=== PATIENT | male | born 1985 | race Caucasian/White ===

== ENCOUNTER 2023-02-08 19:50 | Emergency (ER) | payer OTHER ==
[~2023-02-08] VITALS: Ht 188 cm; Wt 143.0 kg
[~2023-02-08 19:50] MED LIST: ACET-2267 PO; AMOX-355 PO; BENADRY; DEXT5SYR7 PO; DOXY100C2 PO; ERYT1OIN6 OP; HYDR-4226 PO; PRD20T PO; SULF1TAB38 PO; SULF1TAB7 PO
--- NOTE | 2023-02-08 20:20 | ED General ---
General Chief Complaint: Exposure Stated Complaint: NEEDLE STICK Nursing Triage Note: PT AMB TO RM 6 W C/O NEEDLE STICK, REPORTS HE WORKS AT [employer] [address]. PT STATES WHILE AT WORK HE FOUND AN INSULIN NEEDLE NEAR THE ROAD, WHEN HE WENT TO DISPOSE OF NEEDLE IT PRICKED LEFT SECOND FINGER. PT A&OX4. Source of Information: Patient Exam Limitations: No Limitations History of Present Illness Date Seen by Provider: Feb 08, 2023 Time Seen by Provider: 20:16 Initial Comments Patient is a 37-year-old male who presents the ED for needlestick. Patient works at [employer]. 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 Was wearing plastic gloves. He put the cap on the needle and the needle punctured his left index finger through the cap. He reports a small puncture without any bleeding. He is up-to-date on his tetanus. He states the needle was an insulin needle. Was recommended come the ED as urgent care was not open. Patient denies redness, swelling. Allergies and Home Medications Allergies Coded Allergies: NKANo Known Allergies (Unverified Allergy, Unknown, 01/31/08) No Known Drug Allergies (Verified , 01/31/08) Patient Home Medication List Home Medication List Reviewed: Yes Dolutegravir Sodium (Tivicay) 50 Mg Tablet, 50 MG PO DAILY Prescribed by: YARI JENKINS on 02/08/232121 Emtricitabine/Tenofov Alafenam (Descovy 200-25 mg Tablet) 200 Mg-25 Mg Tablet, 1 EACH PO DAILY Prescribed by: YARI JENKINS on 02/08/232121 Hydrocodone/Acetaminophen (Hydrocodone/Acetaminophen 5 MG/325 MG TAB) 1 Each Tablet, 1 EACH PO Q4H PRN for PAIN Prescribed by: BERNABE BREWSTER on 07/23/16 1110 Sulfamethoxazole/Trimethoprim (Bactrim Ds Tablet) 1 Each Tablet, 1 EACH PO BID Prescribed by: BERNABE BREWSTER on 07/23/16 1108 Review of Systems Review of Systems Constitutional: No chills, No diaphoresis, No malaise, No weakness EENTM: No ear pain, No blurred vision, No double vision Respiratory: No cough, No dyspnea on exertion Cardiovascular: No chest pain Gastrointestinal: No abdominal pain, No diarrhea, No dysphagia, No nausea, No vomiting Genitourinary: No decreased output, No discharge Musculoskeletal: No back pain, No joint pain, No joint swelling, No muscle pa in, No muscle stiffness Skin: No change in color Psychiatric/Neurological: Denies Anxiety, Denies Depressed All Other Systems Reviewed Negative Unless Noted: Yes Past Nariuam-Ikquye-Eyxuhj Hx Patient Social History Tobacco Use?: No Use of E-Cig and/or Vaping dev: No Substance use?: No Alcohol Use?: No Immunizations Up To Date Tetanus Booster (TDap): Unknown Past Medical History Asthma Reproductive Disorders: No Family Medical History COPD 19 MOTHER Diabetes mellitus 19 MOTHER Lung cancer 19 FATHER Cancer, Diabetes, Hypertension Physical Exam Vital Signs Vital Signs - First Documented 02/08/23 19:57 Temp 37.1 Pulse 78 Resp 18 B/P (MAP) 174/103 (126) Pulse Ox 96 O2 Delivery Room Air Capillary Refill : Less Than 3 Seconds Height, Weight, BMI Height: 6'2" Weight: 255lbs. 1.0oz. 115.088648vc; 40.00 BMI Method:Stated General Appearance: No Apparent Distress, WD/WN Eyes: Bilateral Eye Normal Inspection, Bilateral Eye PERRL, Bilateral Eye EOMI HEENT: PERRL/EOMI, TMs Normal, Normal ENT Inspection, Pharynx Normal Neck: Full Range of Motion, Normal Inspection, Non Tender, Supple Respiratory: Chest Non Tender, Lungs Clear, Normal Breath Sounds, No Accessory Muscle Use, No Respiratory Distress Cardiovascular: Regular Rate, Rhythm, No Edema, No Gallop, No JVD, No Murmur Gastrointestinal: Normal Bowel Sounds, No Organomegaly, No Pulsatile Mass, Non Tender Rectal: Normal Exam Back: Normal Inspection, No CVA Tenderness, No Vertebral Tenderness Extremity: Normal Capillary Refill, Normal Range of Motion Neurologic/Psychiatric: Alert, Oriented x3, No Motor/Sensory Deficits, Normal Mood/Affect Skin: Other (Very small pinpoint puncture left index finger.) Progress/Results/Core Measures Suspected Sepsis SIRS Temperature: Pulse: 78 Respiratory Rate: 18 Laboratory Tests 02/08/23 20:56: White Blood Count 7.4 Blood Pressure 174 /103 Mean: 126 Laboratory Tests 02/08/23 20:56: Creatinine 0.88, Platelet Count 248, Total Bilirubin 0.5 Results/Orders Lab Results Laboratory Tests Test 02/08/23 20:56 Range/Units White Blood Count 7.4 4.3-11.0 10^3/uL Red Blood Count 5.67 H 4.30-5.52 10^6/uL Hemoglobin 16.0 13.3-17.7 g/dL Hematocrit 46 40-54 % Mean Corpuscular Volume 81 80-99 fL Mean Corpuscular Hemoglobin 28 25-34 pg Mean Corpuscular Hemoglobin Concent 35 32-36 g/dL Red Cell Distribution Width 13.2 10.0-14.5 % Platelet Count 248 130-400 10^3/uL Mean Platelet Volume 8.9 L 9.0-12.2 fL Immature Granulocyte % (Auto) 0 % Neutrophils (%) (Auto) 54 42-75 % Lymphocytes (%) (Auto) 35 12-44 % Monocytes (%) (Auto) 9 0-12 % Eosinophils (%) (Auto) 2 0-10 % Basophils (%) (Auto) 0 0-10 % Neutrophils # (Auto) 4.0 1.8-7.8 10^3/uL Lymphocytes # (Auto) 2.5 1.0-4.0 10^3/uL Monocytes # (Auto) 0.6 0.0-1.0 10^3/uL Eosinophils # (Auto) 0.2 0.0-0.3 10^3/uL Basophils # (Auto) 0.0 0.0-0.1 10^3/uL Immature Granulocyte # (Auto) 0.0 0.0-0.1 10^3/uL Sodium Level 141 135-145 MMOL/L Potassium Level 3.9 3.6-5.0 MMOL/L Chloride Level 106 98-107 MMOL/L Carbon Dioxide Level 23 21-32 MMOL/L Anion Gap 12 5-14 MMOL/L Blood Urea Nitrogen 12 7-18 MG/DL Creatinine 0.88 0.60-1.30 MG/DL Estimat Glomerular Filtration Rate 114 BUN/Creatinine Ratio 14 Glucose Level 107 H 70-105 MG/DL Calcium Level 9.4 8.5-10.1 MG/DL Corrected Calcium 8.5-10.1 MG/DL Total Bilirubin 0.5 0.1-1.0 MG/DL Aspartate Amino Transf (AST/SGOT) 23 5-34 U/L Alanine Aminotransferase (ALT/SGPT) 32 0-55 U/L Alkaline Phosphatase 84 40-136 U/L Total Protein 7.8 6.4-8.2 GM/DL Albumin 4.6 H 3.2-4.5 GM/DL My Orders Orders - ARIEL GARCIA Hepatitis B Surface Antigen (02/08/23 20:06) Hiv 1/2 Antibody (02/08/23 20:06) Hepatitis C Antibody (02/08/23 20:06) Cbc With Automated Diff (02/08/23 20:06) Comprehensive Metabolic Panel (02/08/23 20:06) Emtricitabine/Tenofov (Hiv Pro (Descovy (02/09/23 09:00) Dolutegravir (Hiv Protocol) (Tivicay Tab (02/09/23 09:00) Vital Signs/I&O 02/08/23 02/08/23 19:57 21:26 Temp 37.1 Pulse 78 80 Resp 18 B/P (MAP) 174/103 (126) 165/93 Pulse Ox 96 O2 Delivery Room Air Capillary Refill : Less Than 3 Seconds Blood Pressure Mean: 126 Departure Communication (PCP) Patient with a needlestick at work. Patient was stuck by a unknown insulin needle while working at [employer]. 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 Patient was wearing a plastic gloves at that time . he states the needle went through the cap and resulted in a small puncture without any bleeding to the left index finger. Patient is up-to-date on his tetanus. Occupational protocol was initiated for HIV and hepatitis. He states is up-to-date on his hepatitis B vaccine. HIV, hepatitis B, hepatitis C lab work was drawn. CBC, CMP grossly unremarkable. Discussed with patient that he is likely low risk. No strong evidence of mucous membrane involvement or large amount of blood involvement. Discussed risk versus benefits of taking antiviral HIV PEP. Patient was requesting to start the medication. Since patient is within 72 hours patient was started on PEP medication. Once lab work returns negative patient can stop. If positive will need to continue medication And further hepatitis testing. Since we do not have occupational health recommend following up with community health or protocol per [facility] for further evaluation. Will likely need serial testing. Need to follow-up with lab work. We will call if positive. Patient agrees with plan of action. Impression Primary Impression: Needle stick injury Disposition: HOME, SELF-CARE Condition: Stable Departure-Patient Inst. Decision time for Depature: 21:20 Referrals: [facility] (PCP/Family) Primary Care Physician Patient Instructions: Wound Care ED Add. Discharge Instructions: Recommend following up with [facility] or your protocol for further evaluation for work comp injury. Recommend serial testing. Need to follow-up with results All discharge instructions reviewed with patient and/or family. Voiced understanding. Scripts Dolutegravir Sodium (Tivicay) 50 Mg Tablet 50 MG PO DAILY for 3 Days, #3 TAB Prov: ARIEL GARCIA 02/08/23 Emtricitabine/Tenofov Alafenam (Descovy 200-25 mg Tablet) 200 Mg-25 Mg Tablet 1 EACH PO DAILY for 3 Days, #3 TAB Prov: ARIEL GARCIA 02/08/23 ARIEL GARCIA Feb 08, 2023 20:20
[2023-02-08 21:03] LABS: BASOPHILS % (AUTO) 0 % (0-10); EOSINOPHILS # (AUTO) 0.2 10^3/uL (0.0-0.3); EOSINOPHILS % (AUTO) 2 % (0-10); HEMATOCRIT 46 % (40-54); LYMPHOCYTES # (AUTO) 2.5 10^3/uL (1.0-4.0); LYMPHOCYTES % (AUTO) 35 % (12-44); MEAN CORPUSCULAR HEMOGLOBIN 28 pg (25-34); MEAN CORPUSCULAR HGB CONC 35 g/dL (32-36); MEAN CORPUSCULAR VOLUME 81 fL (80-99); MEAN PLATELET VOLUME 8.9 fL (9.0-12.2); MONOCYTES # (AUTO) 0.6 10^3/uL (0.0-1.0); MONOCYTES % (AUTO) 9 % (0-12); NEUTROPHILS % (AUTO) 54 % (42-75); PLATELET COUNT 248 10^3/uL (130-400); WHITE BLOOD COUNT 7.4 10^3/uL (4.3-11.0)
[2023-02-08] MEDS ORDERED: DOLU50TA PO (21:22)
[2023-02-08] MEDS ORDERED: EMTR1TAB13 PO (21:22)
[2023-02-08 21:23] LABS: ALANINE AMINOTRANSFERASE 32 U/L (0-55); ALBUMIN 4.6 GM/DL (3.2-4.5); ALKALINE PHOSPHATASE 84 U/L (40-136); BILIRUBIN,TOTAL 0.5 MG/DL (0.1-1.0); BUN/CREATININE RATIO 14; CALCIUM 9.4 MG/DL (8.5-10.1); CARBON DIOXIDE 23 MMOL/L (21-32); CHLORIDE 106 MMOL/L (98-107); CREATININE SERUM 0.88 MG/DL (0.60-1.30); GFR ESTIMATED 114; GLUCOSE 107 MG/DL (70-105); POTASSIUM 3.9 MMOL/L (3.6-5.0); SODIUM 141 MMOL/L (135-145); TOTAL PROTEIN 7.8 GM/DL (6.4-8.2)
[2023-02-08 21:26] VITALS: BP 165/93
[2023-02-09] MEDS ORDERED: TENOFOV PO SCH (09:00)
[2023-02-09] MEDS ORDERED: EMTRICITABINE PO SCH (09:00)
[2023-02-09] MEDS ORDERED: DOLUTEGRAVIR 50 MG PO SCH (09:00)
[2023-02-09 21:04] LABS: HEPATITIS C ANTIBODY C Non-Reactive (Non-Reactive)
== END 2023-02-08 21:26 | disposition home or self-care (01) ==
LOC: EDUNIT# 19:50 → ER 19:53
DX: S61.231A Puncture wound without foreign body of left index finger without damage to nail, initial encounter (principal); W46.1XXA Contact with contaminated hypodermic needle, initial encounter; Y92.512 Supermarket, store or market as the place of occurrence of the external cause; Y92.59 Other trade areas as the place of occurrence of the external cause; Y99.0 Civilian activity done for income or pay
CPT/HCPCS: 36415; 80053; 85025; 86803; 87340; 87389; 99281

== ENCOUNTER 2023-05-24 21:21 | Emergency (ER) | payer BC ==
[~2023-05-24] VITALS: Ht 187.9 cm; Wt 139.0 kg
[~2023-05-24 21:21] MED LIST changes: +DOLU50TA PO; +EMTR1TAB13 PO; +ONDA4TAB11 SL
--- NOTE | 2023-05-24 22:08 | ED General ---
General Chief Complaint: General Problems/Pain Stated Complaint: DIARREHA, DEHYDRATION, WEIGHT LOSS Nursing Triage Note: PT AMB TO FT1 WITH CC OF DIARRHEA. PT REPORTS THAT HE HAS LOST 7LBS IN 1 DAY. PT WAS SEEN LAST NIGHT FOR VIRAL INFECTION. Source of Information: Patient, Old Records Exam Limitations: No Limitations History of Present Illness Date Seen by Provider: May 24, 2023 Time Seen by Provider: 21:55 Initial Comments This 37-year-old gentleman presents to the emergency room with complaints of of persistent diarrhea and weight loss. He was seen in this emergency room last night. He has been taking Imodium and Zofran but is still experiencing nausea and repeated episodes of diarrhea. He reports at least 7 pounds of weight loss over the last 24 hours. He was seen in this ER yesterday evening. Chart was winsome ruiz. He has experience fever and generalized myalgia. He denies any significant abdominal pain to palpation but does have repeated bowel cramping. He denies blood in his stools. Flu and COVID19 swabs were negative yesterday. Allergies and Home Medications Allergies Coded Allergies: NKANo Known Allergies (Unverified Allergy, Unknown, 01/31/08) No Known Drug Allergies (Verified , 01/31/08) Patient Home Medication List Home Medication List Reviewed: Yes Dolutegravir Sodium (Tivicay) 50 Mg Tablet, 50 MG PO DAILY Prescribed by: YARI JENKINS on 02/08/232121 Emtricitabine/Tenofov Alafenam (Descovy 200-25 mg Tablet) 200 Mg-25 Mg Tablet, 1 EACH PO DAILY Prescribed by: YARI JENKINS on 02/08/232121 Hydrocodone/Acetaminophen (Hydrocodone/Acetaminophen 5 MG/325 MG TAB) 1 Each Tablet, 1 EACH PO Q4H PRN for PAIN Prescribed by: BERNABE BREWSTER on 07/23/16 1110 Hyoscyamine Sulfate (Levsin-Sl) 0.125 Mg Tab.subl, 1-2 TAB SL Q4H PRN for CRAMPS Prescribed by: JOLLY HARRIS on 05/24/23 2336 Ondansetron (Ondansetron Odt) 4 Mg Tab.rapdis, 4 MG SL Q4H PRN for NAUSEA/VOMITING Prescribed by: YARI JENKINS on 05/23/232004 Sulfamethoxazole/Trimethoprim (Bactrim Ds Tablet) 1 Each Tablet, 1 EACH PO BID Prescribed by: BERNABE BREWSTER on 07/23/16 1108 Review of Systems Review of Systems Constitutional: no symptoms reported EENTM: no symptoms reported Respiratory: no symptoms reported Cardiovascular: no symptoms reported Gastrointestinal: see HPI Genitourinary: no symptoms reported Musculoskeletal: no symptoms reported Skin: no symptoms reported Psychiatric/Neurological: No Symptoms Reported Hematologic/Lymphatic: No Symptoms Reported Past Cczneip-Vvikdv-Hgggdf Hx Patient Social History Tobacco Use?: No Substance use?: No Alcohol Use?: No Immunizations Up To Date Tetanus Booster (TDap): Unknown Past Medical History Surgery/Hospitalization HX: HTN AND CHOLESTEROL INGUINAL HERNIA Surgeries: Yes Abdominal Respiratory: Yes Asthma Cardiac: Yes High Cholesterol, Hypertension Reproductive Disorders: No Family Medical History COPD 19 MOTHER Diabetes mellitus 19 MOTHER Lung cancer 19 FATHER Cancer, Diabetes, Hypertension Physical Exam Vital Signs Vital Signs - First Documented 05/24/23 21:46 Temp 37.9 Pulse 98 B/P (MAP) 133/88 (103) Pulse Ox 95 O2 Delivery Room Air Capillary Refill : Height, Weight, BMI Height: 6'2" Weight: 255lbs. 1.0oz. 115.543639vn; 39.00 BMI Method:Stated General Appearance: No Apparent Distress, WD/WN HEENT: PERRL/EOMI, Normal ENT Inspection, Other (oropharnx somewhat dry) Neck: Normal Inspection, Non Tender Respiratory: Lungs Clear, Normal Breath Sounds, No Accessory Muscle Use Cardiovascular: Regular Rate, Rhythm, No Edema, No Murmur Gastrointestinal: Normal Bowel Sounds, Non Tender, Soft Extremity: Normal Inspection, No Pedal Edema Neurologic/Psychiatric: Alert, Oriented x3, No Motor/Sensory Deficits, Normal Mood/Affect Skin: Normal Color, Warm/Dry Progress/Results/Core Measures Suspected Sepsis SIRS Temperature: Pulse: 98 Respiratory Rate: Laboratory Tests 05/24/23 22:15: White Blood Count 8.2 Blood Pressure 133 /88 Mean: 103 Laboratory Tests 05/24/23 22:15: Creatinine 1.42H, Platelet Count 218, Total Bilirubin 0.8 Results/Orders Lab Results Laboratory Tests Test 05/24/23 22:15 Range/Units White Blood Count 8.2 4.3-11.0 10^3/uL Red Blood Count 6.22 H 4.30-5.52 10^6/uL Hemoglobin 17.8 H 13.3-17.7 g/dL Hematocrit 51 40-54 % Mean Corpuscular Volume 82 80-99 fL Mean Corpuscular Hemoglobin 29 25-34 pg Mean Corpuscular Hemoglobin Concent 35 32-36 g/dL Red Cell Distribution Width 13.5 10.0-14.5 % Platelet Count 218 130-400 10^3/uL Mean Platelet Volume 9.3 9.0-12.2 fL Immature Granulocyte % (Auto) 0 % Neutrophils (%) (Auto) 71 42-75 % Lymphocytes (%) (Auto) 13 12-44 % Monocytes (%) (Auto) 15 H 0-12 % Eosinophils (%) (Auto) 1 0-10 % Basophils (%) (Auto) 0 0-10 % Neutrophils # (Auto) 5.8 1.8-7.8 10^3/uL Lymphocytes # (Auto) 1.0 1.0-4.0 10^3/uL Monocytes # (Auto) 1.2 H 0.0-1.0 10^3/uL Eosinophils # (Auto) 0.1 0.0-0.3 10^3/uL Basophils # (Auto) 0.0 0.0-0.1 10^3/uL Immature Granulocyte # (Auto) 0.0 0.0-0.1 10^3/uL Sodium Level 135 135-145 MMOL/L Potassium Level 3.5 L 3.6-5.0 MMOL/L Chloride Level 108 H 98-107 MMOL/L Carbon Dioxide Level 12 L 21-32 MMOL/L Anion Gap 15 H 5-14 MMOL/L Blood Urea Nitrogen 16 7-18 MG/DL Creatinine 1.42 H 0.60-1.30 MG/DL Estimat Glomerular Filtration Rate 65 BUN/Creatinine Ratio 11 Glucose Level 152 H 70-105 MG/DL Calcium Level 8.8 8.5-10.1 MG/DL Corrected Calcium 8.5-10.1 MG/DL Magnesium Level 2.1 1.6-2.4 MG/DL Total Bilirubin 0.8 0.1-1.0 MG/DL Aspartate Amino Transf (AST/SGOT) 36 H 5-34 U/L Alanine Aminotransferase (ALT/SGPT) 40 0-55 U/L Alkaline Phosphatase 73 40-136 U/L Total Protein 8.3 H 6.4-8.2 GM/DL Albumin 4.6 H 3.2-4.5 GM/DL Lipase 9 8-78 U/L My Orders Orders - JOLLY BULLARD MD Ed Iv/Invasive Line Start (05/24/23 22:03) Lactated Ringers 1,000 Ml (Lactated Ring (05/24/23 22:15) Cbc And Automated Diff (05/24/23 22:03) Comprehensive Metabolic Panel (05/24/23 22:03) Lipase (05/24/23 22:03) Magnesium (05/24/23 22:03) Ondansetron Injection (Ondansetron Inj (05/24/23 22:15) Hyoscyamine Tablet (Hyoscyamine Tablet) (05/24/23 22:15) Lactated Ringers 1,000 Ml (Lactated Ring (05/24/23 23:30) Ketorolac Injection (Ketorolac Injection (05/24/23 23:45) Lactated Ringers 1,000 Ml (Lactated Ring (05/24/23 23:28) Ketorolac Injection (Ketorolac Injection (05/24/23 23:49) Medications Given in ED Vital Signs/I&O 05/24/23 05/25/23 21:46 00:18 Temp 37.9 Pulse 98 92 B/P (MAP) 133/88 (103) 138/84 Pulse Ox 95 O2 Delivery Room Air Capillary Refill : Blood Pressure Mean: 103 Progress Note : Progress Note Patient was treated with Zofran and Levsin with no further vomiting or diarrhea. He was hydrated with 2 liters of LR. Labs were reviewed and interpreted in their entirety. CBC demonstrated Hgb increase to 17.2 likely representing hemo concentration. CMP revealed an increase in creatinine to 1.42 from 0.88, likely representing hypovolemia. Glucose was mildly elevated at 152. Labs were otherwise unremarkable. See discharge instructions for further discussion. Departure Impression Primary Impression: Nausea vomiting and diarrhea Additional Impression: Abdominal cramping Disposition: HOME, SELF-CARE Condition: Improved Departure-Patient Inst. Decision time for Depature: 23:33 Referrals: [facility] [place] (PCP/Family) Primary Care Physician Patient Instructions: Diarrhea, Adult ED, Viral gastroenteritis in adults Add. Discharge Instructions: Your symptoms are likely due to a viral gastroenteritis. Start with a noncarbonated clear liquid diet and adhere to this clear liquid diet for about 24 hours. Then gradually advance your diet with small quantities of bland food as tolerated. [place] foods may include crackers, toast, white rice, bananas, potatoes, etc. Avoid dairy and fatty or greasy foods until your diarrhea has been resolved for at least 48 hours. Use Zofran (ondansetron) as prescribed for nausea or vomiting. Use Levsin (hyoscyamine) as prescribed for bowel cramping or diarrhea. You may use Tylenol (acetaminophen) up to 1000 mg every 6 hours as needed for pain. Return to care if you have worsening symptoms despite following these instructions. All discharge instructions reviewed with patient and/or family. Voiced unde rstanding. Scripts Hyoscyamine Sulfate (Levsin-Sl) 0.125 Mg Tab.subl 1-2 TAB SL Q4H PRN for CRAMPS, #10 TAB 0 Refills Use for bowel cramping and/or diarrhea. Prov: JOLLY BULLARD MD 05/24/23 Copy Copies To 1: [facility]/JOLLY AMARO MD May 24, 2023 22:08
[2023-05-24] MEDS ORDERED: ONDANSETRON INJECTION 4 MG/2 ML (SDV) IVP ONE (22:15)
[2023-05-24] MEDS ORDERED: HYOSCYAMINE 0.125 MG TABLET SL ONE (22:15)
[2023-05-24] MEDS ORDERED: LACTATED RINGERS 1,000 ML 1,000 ML IV ONE ×3 (22:15→23:30)
[2023-05-24 22:24] LABS: BASOPHILS % (AUTO) 0 % (0-10); EOSINOPHILS # (AUTO) 0.1 10^3/uL (0.0-0.3); EOSINOPHILS % (AUTO) 1 % (0-10); HEMATOCRIT 51 % (40-54); HEMOGLOBIN 17.8 g/dL (13.3-17.7); LYMPHOCYTES % (AUTO) 13 % (12-44); MEAN CORPUSCULAR HEMOGLOBIN 29 pg (25-34); MEAN CORPUSCULAR HGB CONC 35 g/dL (32-36); MEAN CORPUSCULAR VOLUME 82 fL (80-99); MEAN PLATELET VOLUME 9.3 fL (9.0-12.2); MONOCYTES # (AUTO) 1.2 10^3/uL (0.0-1.0); MONOCYTES % (AUTO) 15 % (0-12); NEUTROPHILS # (AUTO) 5.8 10^3/uL (1.8-7.8); NEUTROPHILS % (AUTO) 71 % (42-75); PLATELET COUNT 218 10^3/uL (130-400); WHITE BLOOD COUNT 8.2 10^3/uL (4.3-11.0)
[2023-05-24 22:32] LABS: ALBUMIN 4.6 GM/DL (3.2-4.5)
[2023-05-24 22:33] LABS: CHLORIDE 108 MMOL/L (98-107); POTASSIUM 3.5 MMOL/L (3.6-5.0); SODIUM 135 MMOL/L (135-145)
[2023-05-24 22:34] LABS: CALCIUM 8.8 MG/DL (8.5-10.1)
[2023-05-24 22:35] LABS: GLUCOSE 152 MG/DL (70-105); TOTAL PROTEIN 8.3 GM/DL (6.4-8.2)
[2023-05-24 22:36] LABS: CARBON DIOXIDE 12 MMOL/L (21-32)
[2023-05-24 22:37] LABS: BILIRUBIN,TOTAL 0.8 MG/DL (0.1-1.0)
[2023-05-24 22:38] LABS: ALKALINE PHOSPHATASE 73 U/L (40-136)
[2023-05-24 22:39] LABS: CREATININE SERUM 1.42 MG/DL (0.60-1.30); GFR ESTIMATED 65
[2023-05-24 22:40] LABS: BUN/CREATININE RATIO 11
[2023-05-24 22:41] LABS: ALANINE AMINOTRANSFERASE 40 U/L (0-55)
[2023-05-24 22:42] LABS: MAGNESIUM 2.1 MG/DL (1.6-2.4)
[2023-05-24 22:43] LABS: LIPASE 9 U/L (8-78)
[2023-05-24] MEDS ORDERED: HYOS0.1283 SL (23:36)
[2023-05-24] MEDS ORDERED: KETOROLAC INJ 30 MG/ML VIAL IVP ONE (23:45)
[2023-05-24] MEDS ORDERED: KETOROLAC INJ 30 MG/ML VIAL ONE (23:49)
[2023-05-25 00:18] VITALS: BP 138/84
== END 2023-05-25 00:22 | disposition home or self-care (01) ==
LOC: EDUNIT# 21:21 → ER 21:24
DX: R19.7 Diarrhea, unspecified (principal); R11.2 Nausea with vomiting, unspecified; R10.9 Unspecified abdominal pain
CPT/HCPCS: 36415; 80053; 83690; 83735; 85025